=== PATIENT | female | born 1960 | race Hispanic/Latino ===

== ENCOUNTER 2018-11-22 10:57 | Day surgery (SDC) | payer OTHER ==
[~2018-11-22] VITALS: Ht 163.8 cm; Wt 60.1 kg
[2018-11-22 11:26] VITALS: BP 197/107
[2018-11-22 12:27] LABS: INR 0.92 (0.85-1.15); PARTIAL THROMBOPLASTIN TIME 27.3 SEC (26.3-35.5); PROTHROMBIN TIME 9.7 SEC (9.6-11.6)
[2018-11-22] MEDS ORDERED: LIDOCAINE HCL 1% MDV 50ML VIAL ONE (13:02)
[2018-11-22] MEDS ORDERED: IOHEXOL-350 50ML VIAL IV ONE (13:26)
[2018-11-22 14:14] VITALS: BP 177/77
--- NOTE | 2018-11-22 14:14 | NUR ---
ASSESSMENT RECEIVED PT FROM CONFERENCE PLANNER PERSONNEL. TPA RUNNING TO PORT-A-CATH. SITE SOFT TO TOUCH. NO BLEEDING, OOZING NOTED TO SITE.
[2018-11-22] MEDS ORDERED: HEPARIN SODIUM/PF 100UNIT/ML 5ML SYRINGE IV SCH (14:45)
[2018-11-22] MEDS ORDERED: HEPARIN SOD 1000 UNIT/ML IV SCH (15:00)
--- NOTE | 2018-11-22 15:17 | NUR ---
HEPARIN PORTACATH FLUSHED WITH 2000IU OF HEPARIN USING ASEPTIC TECHNIQUE. HEUBNER NEEDLE DISCONTINUED AND MANUAL PRESSURE HELD TO SITE. DRSG APPLIED TO PORTACATH. NO BLEEDING NOTED. DISCHARGE INSTRUCTIONS GIVEN TO PT. NO OTHER QUESTIONS AT THIS FRIEND.
[2018-11-22 15:30] VITALS: BP 154/77
== END 2018-11-22 15:40 | disposition home or self-care (01) ==
LOC: DAH 10:57
PROVIDERS: ATTEND Internal Medicine Hematology & Oncology
DX: T82.868A Thrombosis due to vascular prosthetic devices, implants and grafts, initial encounter (principal); C76.8 Malignant neoplasm of other specified ill-defined sites; Z79.01 Long term (current) use of anticoagulants; C50.811 Malignant neoplasm of overlapping sites of right female breast; E86.0 Dehydration; J01.90 Acute sinusitis, unspecified; J20.9 Acute bronchitis, unspecified; T78.40XA Allergy, unspecified, initial encounter; F32.9 Major depressive disorder, single episode, unspecified; Z88.2 Allergy status to sulfonamides; Z80.8 Family history of malignant neoplasm of other organs or systems; Z82.49 Family history of ischemic heart disease and other diseases of the circulatory system; I25.119 Atherosclerotic heart disease of native coronary artery with unspecified angina pectoris; I82.90 Acute embolism and thrombosis of unspecified vein; I26.99 Other pulmonary embolism without acute cor pulmonale
CPT/HCPCS: 36415; 36593; 36598; 85610; 85730; A4606; J1644 ×2; Q9967; J3490